=== PATIENT | female | born 1945 | race Caucasian/White ===

== ENCOUNTER 2022-10-06 12:20 | Inpatient (IN) | payer MEDICARE, OTHER ==
[2022-10-06] VITALS (33 sets, daily range): BP systolic 85–156; BP diastolic 33–81
[~2022-10-06] VITALS: Ht 165.1 cm; Wt 70.3 kg
[~2022-10-06 12:20] MED LIST: FURO-145 PO; LACT10SO3 PO; METF-441 PO; PANT40TA2 PO; POTA10CA43 PO; SPIR50TA PO
[2022-10-06] MEDS ORDERED: VANCOMYCIN 1 GM in IV D5W 250 ML IV ONE (13:00)
[2022-10-06] MEDS ORDERED: IV NS 0.9% 1,000 ML BAG IV ONE (13:00)
[2022-10-06] MEDS ORDERED: PIPERACILLIN /TAZOBACTAM 3.375 G in IV D5W 50 ML IV ONE (13:00)
[2022-10-06] MEDS ORDERED: IV NS 0.9% 1,000 ML IV ONE (13:00)
[2022-10-06] MEDS ORDERED: OMEP20TA20 PO (13:07)
[2022-10-06] MEDS ORDERED: FURO20TA4 PO (13:07)
[2022-10-06] MEDS ORDERED: OXYC1TAB8 PO (13:07)
[2022-10-06] MEDS ORDERED: CIPR500T5 PO (13:07)
[2022-10-06] MEDS ORDERED: ONDA4TAB11 PO (13:07)
[2022-10-06] MEDS ORDERED: SPIR50TA5 PO (13:07)
[2022-10-06 13:59] LABS: BASOPHILS % (AUTO) 0.1 % (0.0-2.0); EOSINOPHILS % (AUTO) 0.3 % (0.0-6.0); LYMPHOCYTES # (AUTO) 1.2 K/uL (0.8-4.8); LYMPHOCYTES % (AUTO) 6.8 % (20.0-44.0); MEAN CORPUSCULAR HGB CONC 30 g/dl (31.0-36.0); MEAN CORPUSCULAR VOLUME 80 fL (82-100); MONOCYTES # (AUTO) 1.7 K/uL (0.1-1.30); MONOCYTES % (AUTO) 9.8 % (2.0-12.0); NEUTROPHILS # (AUTO) 14.7 K/uL (1.8-8.9); PLATELET COUNT (AUTO) 160 K/uL (150-450); WHITE BLOOD COUNT (AUTO) 17.8 K/uL (4.3-11.0)
[2022-10-06 14:01] LABS: RED BLOOD CELL COUNT(AUTO) 1.23 MIL/uL (4.0-5.2)
[2022-10-06 14:02] LABS: HEMATOCRIT 10 % (33-45); HEMOGLOBIN 2.9 g/dL (11.5-14.8)
[2022-10-06 14:08] LABS: CHLORIDE 99 mmol/L (98-107); POTASSIUM 5.7 mmol/L (3.5-5.1); SODIUM SERUM 125 mmol/L (136-145)
[2022-10-06 14:09] LABS: CALCIUM, SERUM 6.8 mg/dL (8.5-10.1); CARBON DIOXIDE 21 mmol/L (21-32); CREATININE 0.7 mg/dL (0.6-1.3); GLUCOSE 196 mg/dL (74-106); UREA NITROGEN, BLOOD 25 mg/dL (7-18)
--- NOTE | 2022-10-06 14:15 | NUR ---
JOVANA ESTABLISHED. 20G R FA
--- NOTE | 2022-10-06 14:16 | NUR ---
ELIZABETH INSERTED. NO URINE
[2022-10-06 14:23] LABS: BILIRUBIN,TOTAL 0.7 mg/dL (0.2-1.0)
[2022-10-06 14:24] LABS: ALANINE AMINOTRANSFERASE 187 U/L (12-78); ALKALINE PHOSPHATASE 142 U/L (46-116); ASPARTATE AMINOTRANSFERASE 492 U/L (15-37); BILIRUBIN,DIRECT 0.3 mg/dL (0.0-0.2)
--- NOTE | 2022-10-06 14:30 | NUR ---
MOVE SHEET SUBMITTED.
[2022-10-06] MEDS ORDERED: IV NS 0.9% 250 ML IV ONE ×2 (14:38→14:54)
[2022-10-06] MEDS ORDERED: IOHEXOL-350 100 ML VIAL IV ONE ×3 (14:38→15:10)
--- NOTE | 2022-10-06 14:47 | NUR ---
CALLED SURGERY, DR. ROMEO SPEAKING WITH DR. PLUMMER.
[2022-10-06] MEDS: NOREPINEPHRINE 8 MG in IV NS 0.9% 242 ML IV PRN ×2 (15:00→19:09)
--- NOTE | 2022-10-06 15:00 | NUR ---
PATIENT TAKEN TO CT
[2022-10-06 15:15] LABS: BASOPHILS % (MANUAL) 2 % (0.0-2.0); LYMPHOCYTES % (MANUAL) 4 % (16-48); MONOCYTES % (MANUAL) 8 % (0-11.0); NEUTROPHILS % (MANUAL) 86 (42-76)
--- NOTE | 2022-10-06 15:15 | NUR ---
IV ESTABLISHED. L UA 20G
[2022-10-06] MEDS ORDERED: Calcium Gluconate 1GM/10ML 9.3 MEQ in IV NS 0.9% 100 ML IV ONE (15:30)
--- NOTE | 2022-10-06 15:52 | NUR ---
BED ASSIGNED- ICU 261
--- NOTE | 2022-10-06 16:18 | NUR ---
[facility] CALLED TREASURY DIRECTOR PAGED.
--- NOTE | 2022-10-06 16:37 | NUR ---
DR. BISHOP SPEAKING WITH HOSPITALIST.
--- NOTE | 2022-10-06 16:41 | NUR ---
REPORT GIVEN TO ANAYELI FOR CONTINUATION OF CARE
--- NOTE | 2022-10-06 16:53 | NUR ---
DR. BLEVINS AT BEDSIDE
[2022-10-06] MEDS ORDERED: NOREPINEPHRINE 32 MG in IV NS 0.9% 218 ML IV PRN (17:00)
[2022-10-06] MEDS ORDERED: PHYTONADIONE INJ 10 MG/1 ML AMPUL SQ SCH (17:00)
[2022-10-06] MEDS ORDERED: NOREPINEPHRINE 8 MG in IV NS 0.9% 250 ML IV PRN (17:00)
[2022-10-06] MEDS ORDERED: ONDANSETRON HCL/PF 4 MG/2 ML VIAL IVP PRN (17:00)
--- NOTE | 2022-10-06 17:25 | NUR ---
patient transferred to bed 262. handoff report given. patient was transferred before 1st unit of blood was complete
--- NOTE | 2022-10-06 17:30 | NUR ---
ICU/RN PT ADMITED FROM ER.DUE TO LOW H/H AND ALOC. PT IS AWAKE AND ALERT NOW ,BARBADIAN SPEAKING.FAMILY AT BED SIDE.ON LEVOPHED DRIP AT 1 MCG/KG /MIN. HAS LOW T-95.8. 2WARM BLANKET ON.F/C IN PLACE WITH MINIMAL AMOUNT OF JUSTIN URINE. SKIN INTACT.ABDOMEN DISTENDED.HAS ASCITES. LABS REVIEW. NOTIFIED.
[2022-10-06] MEDS ORDERED: PIPERACILLIN /TAZOBACTAM 3.375 G in IV D5W 50 ML IV SCH (18:00)
[2022-10-06] MEDS ORDERED: DEXTROSE 50%-WATER 50 ML DISP.SYRIN IV PRN (18:00)
[2022-10-06] MEDS: PANTOPRAZOLE 40 MG VIAL IV SCH (18:12)
[2022-10-06] MEDS: BLOOD SUGAR DIAGNOSTIC 1 EACH STRIP IN SCH (18:12)
--- NOTE | 2022-10-06 19:15 | NUR ---
CLAY CASTER NOTE RECEIVED PT FOR CONTINUITY OF CARE. PATIENT A/OX3-4; THAI SPEAKING; FEELING WEAK IN NO S/SX OF ACUTE DISTRESS AT THIS TIME; CURRENTLY ON ROOM AIR, WITH 02 SAT >95% AT THIS TIME. RECEIVED PT WITH ONGOING BLOOD TRANSFUSION (2ND BAG OF PRBC) RUNNING PER PROTOCOL. ALSO HAS LEVO RECEIVED AT 1MCG/KG/MIN MONITORED AND ADJUSTED PER PROTOCOL.PT ON NPO. WITH ELIZABETH CATH SECURED AND INTACT WITH SMALL URINE OUTPUT NOTED. WILL ENSURE SAFETY MEASURES WITHIN THE SHIFT. PATIENT BED ALARM IS ON. HEAD OF BED ELEVATED. BED IS LOCKED, IN LOWEST POSITION AND SIDE RAILS UP. CALL LIGHT WITHIN REACH OF THE PATIENT. APPLICABLE ISOLATION PRECAUTIONS IN PLACE. WILL CONTINUE TO MONITOR AND REASSESS FOR ANY CHANGES AND WILL CARRY OUT ANY ONGOING AND ACTIVE MD ORDER.
--- NOTE | 2022-10-06 19:45 | NUR ---
QUALITY REP NOTE ENDED BLOOD TRANSFUSION @194, VITAL SIGNS REMAINED WNL, NO BLOOD TRANSFUSION REACTION NOTED. WILL CONTINUE TO MONITOR AND ASSESS FOR ANY BLOOD TRANSFUSION REACTION POST PROCEDURE. H&H TO BE RECHECKED 1HR POST PROCEDURE WILL INFORM LAB. CLUTCH SPECIALIST MADE AWARE.
[2022-10-06] MEDS: ALBUMIN 25% 25 GM in PREMIX 1 EA IV SCH (19:46)
[2022-10-06] MEDS: IV D5/ 0.9% NACL 1,000 ML IV PRN (20:02)
--- NOTE | 2022-10-06 20:20 | NUR ---
PRODUCT SAFETY TECHNICIAN NOTE PICC LINE NURSE FACILITATED INSERTION OF PICC LINE @R UA TRIPLE LUMEN PICC; SECURED , INTACT AND FLUSHING WELL. NURSING INFORMATICS SPECIALIST WELL AWARE.
--- NOTE | 2022-10-06 21:00 | NUR ---
SEAM SEWER NOTE NOTIFIED JOHN COTTER (YENNI POWELL,ROSMERY) THAT PT'S SBP <80, SECURED ORDER FOR 2ND PRESSOR, MAY START CISCO AND MAINTAIN SBP >90. RN ACKNOWLEDGED AND WILL CARRY OUT ROLLING UP MACHINE OPERATOR MADE AWARE.
[2022-10-06] MEDS: PIPERACILLIN /TAZOBACTAM 3.375 G in IV D5W 100 ML IV SCH (21:23)
[2022-10-06] MEDS ORDERED: PHENYLEPHRINE 100 MG in IV NS 0.9% 240 ML IV PRN (21:30)
--- NOTE | 2022-10-06 21:35 | NUR ---
CLINICAL TRIAL ASSISTANT NOTE STARTED 1 BAG OF PLATELET ORDERED. VITAL SIGNS TAKEN AND NOTED TO BE WNL. INFUSED PER PROTOCOL. WILL CONTINUE TO MONITOR AND ASSESS FOR ANY RANSFUSION REACTION AND ADDRESS ACCORDINGLY. BIT AND SHANK DEPARTMENT SUPERVISOR WELL AWARE. Addendum: 10/06/22 at 2211 by HERRERA ORTIZ RN @2210 TRANSFUSION DONE; WILL CONTINUE TO MONITOR.
[2022-10-06 21:39] LABS: HEMOGLOBIN 6.6 g/dL (11.5-14.8)
--- NOTE | 2022-10-06 21:40 | NUR ---
PARLOR MAID NOTE CRITICAL LAB H&H 6.8 ? 22, NOTIFIED ONCALL (YENNI,BLENDING OPERATOR) PT IS S/P 2 PRBC, WITH ONGOING PLATELET TRANSFUSION AND 2 MORE FFP, 1 BAG OF PRBC TO GIVE. ACKNOWLEDGED. OFFICE SERVICES ASSOCIATE MADE AWARE.
--- NOTE | 2022-10-06 22:03 | NUR ---
PUBLICATIONS EDITOR NOTE CRITICAL LAB FIBRINOGEN @100, NOTIFIED ONCALL (ROSMERY HYMAN), WITH ORDER FOR CRYOPRECIPITATE TO BE GIVEN WITHIN THE SHIFT. MD ACKNOWLEDGED. BOAT HOIST OPERATOR WELL AWARE.
--- NOTE | 2022-10-06 22:15 | NUR ---
WARP COILER NOTE LACTIC ACID 16.5, NOTIFIED ONCALL (ROSMERY HYMAN). NO NEW ORDERS. WILL CONTINUE TO MONITOR. RESOURCE CONSERVATION SPECIALIST MADE AWARE.
--- NOTE | 2022-10-06 22:35 | NUR ---
LIEN SEARCHER NOTE STARTED 1ST BAG OF FFP ORDERED. VITAL SIGNS TAKEN AND NOTED TO BE WNL. INFUSED PER PROTOCOL. WILL CONTINUE TO MONITOR AND ASSESS FOR ANY TRANSFUSION REACTION. VETERINARY TECHNICIAN INSTRUCTOR WELL AWARE. Addendum: 10/06/22 at 2347 by HERRERA ORTIZ RN @2330 TRANSFUSION DONE; WILL CONTINUE TO MONITOR.
--- NOTE | 2022-10-06 23:45 | NUR ---
CHROME TANNER NOTE STARTED 2ND BAG OF FFP ORDERED. VITAL SIGNS TAKEN AND NOTED TO BE WNL. INFUSED PER PROTOCOL. WILL CONTINUE TO MONITOR AND ASSESS FOR ANY TRANSFUSION REACTION. PACKAGING LINE ATTENDANT WELL AWARE. Addendum: 10/07/22 at 0045 by HERRERA ORTIZ RN @0045 TRANSFUSION DONE; WILL CONTINUE TO MONITOR.
[2022-10-07] VITALS (103 sets, daily range): BP systolic 76–173; BP diastolic 42–86
[2022-10-07] MEDS: VANCOMYCIN HCL 0.75 GM in IV D5W 250 ML IV SCH ×2 (00:23→13:15)
[2022-10-07] MEDS: BLOOD SUGAR DIAGNOSTIC 1 EACH STRIP IN SCH ×4 (00:23→18:53)
[2022-10-07] MEDS: INSULIN REGULAR, HUMAN 100 UNIT/ML 3 ML VIAL SQ PRN ×5 (00:25→21:58)
--- NOTE | 2022-10-07 00:50 | NUR ---
DENTAL TECH NOTE STARTED 1BAG OF CRYO ORDERED. VITAL SIGNS TAKEN AND NOTED TO BE WNL. INFUSED PER PROTOCOL. WILL CONTINUE TO MONITOR AND ASSESS FOR ANY TRANSFUSION REACTION. SUBSTATION OPERATOR WELL AWARE. Addendum: 10/07/22 at 0138 by HERRERA ORTIZ RN @0130 TRANSFUSION DONE; WILL CONTINUE TO MONITOR.
--- NOTE | 2022-10-07 01:40 | NUR ---
MASKING MACHINE FEEDER NOTE STARTED 3RD BAG OF PRBC ORDERED. VITAL SIGNS TAKEN AND NOTED TO BE WNL. INFUSED PER PROTOCOL. WILL CONTINUE TO MONITOR AND ASSESS FOR ANY BLOOD TRANSFUSION REACTION. MUNICIPAL ENGINEER WELL AWARE. Addendum: 10/07/22 at 0500 by HERRERA ORTIZ RN @0500 TRANSFUSION DONE; WILL CONTINUE TO MONITOR.
[2022-10-07] MEDS: ALBUMIN 25% 25 GM in PREMIX 1 EA IV SCH ×2 (01:58→10:36)
[2022-10-07] MEDS: PIPERACILLIN /TAZOBACTAM 3.375 G in IV D5W 100 ML IV SCH ×3 (04:09→21:12)
[2022-10-07] MEDS: IV D5/ 0.9% NACL 1,000 ML IV PRN ×2 (06:27→18:54)
[2022-10-07 06:41] LABS: BILIRUBIN,URINE NEGATIVE (NEGATIVE); COLOR,URINE DARK YELLOW (YELLOW); LEUKOCYTE ESTERASE ,URINE NEGATIVE (NEGATIVE); NITRITE, URINE NEGATIVE (NEGATIVE); PH,URINE 5.5 (5.0-8.0); PROTEIN,URINE TRACE mg/dl (NEGATIVE); UGLUCOSE NEGATIVE (NEGATIVE); UROBILINOGEN,URINE 0.2 EU/dL (0.2)
[2022-10-07 06:51] LABS: WBC,URINE 0-2 /HPF (0-3)
[2022-10-07 06:52] LABS: BACTERIA,URINE Rare /HPF (None Seen); SQUAMOUS EPITHELIAL CELL,UR Moderate /HPF (None Seen); YEAST,URINE Many /HPF (None Seen)
--- NOTE | 2022-10-07 06:56 | NUR ---
RESIDENTIAL PROGRAM MANAGER CLOSING NOTE PATIENT REMAINS IN ROOM IN NO SIGNS OF RESPIRATORY DISTRESS, PATIENT STILL ON ROOM AIR; TOLERATING WELL SATURATING @ >93% SP02. S/P TRANSFUSION OF THE FOLLOWING DURING THE SHIFT: 2 FFP, 1 PLATELET, 1 CRYO AND 1 PRBC, NO TRANSFUSION REACTION NOTED. PT STILL ON NPO. SAFETY MEASURES IMPLEMENTED, BED IN LOWEST POSITION, LOCKED, SIDE RAILS UP, CALL LIGHT WITHIN REACH. ALL NEEDS AND ORDERS ADDRESSED DURING THE SHIFT. IV ACCESS MAINTAINED INTACT, SECURED AND FLUSHING WELL WITH IV FLUID RUNNING ORDERED. ALL DUE MEDS GIVEN ORDERED & SCHEDULED ; PATIENT TOLERATED WELL. STILL WITH ONGOING LEVO DRIP NOW AT 0.1MCG/KG/MIN RUNNING AND MONITORED PER PROTOCOL. PATIENT KEPT CLEAN AND COMFORTABLE WITHIN THE SHIFT. PATIENT ENDORSED TO INCOMING SHIFT RN WITH STABLE VITAL SIGN AND FOR CONTINUITY OF CARE.
[2022-10-07] MEDS ORDERED: PHENYLEPHRINE 100 MG in IV NS 0.9% 240 ML IV PRN (07:00)
--- NOTE | 2022-10-07 08:00 | NUR ---
RN NOTES RECEIVED PATIENT SPEAKS PORTUGUESE , AWAKE A/O X2/3, ROOM AIR, T-100F APPLIED COOLING MEASURE. ASSIST TURN and reposition q 2 hr. patient has redness sacral area applied Mepilex, also seen patient via wound nurse. patient on Levophed 0.1 mcg/kg/min, and D5ns@75 ml/hr on tomas picc line intact. patient has distended abdomen paracentesis was done on 10 days ago other hospital. assist turn and reposition with minimall assist. elevated lower extremities. call light within to reach. will follow up.
[2022-10-07 08:13] LABS: LYMPHOCYTES # (AUTO) 0.7 K/uL (0.8-4.8); LYMPHOCYTES % (AUTO) 4.8 % (20.0-44.0); MEAN CORPUSCULAR HGB CONC 33 g/dl (31.0-36.0); MEAN CORPUSCULAR VOLUME 85 fL (82-100); MONOCYTES # (AUTO) 1.1 K/uL (0.1-1.30); MONOCYTES % (AUTO) 7.2 % (2.0-12.0); NEUTROPHILS # (AUTO) 13.7 K/uL (1.8-8.9); PLATELET COUNT (AUTO) 78 K/uL (150-450); WHITE BLOOD COUNT (AUTO) 15.6 K/uL (4.3-11.0)
[2022-10-07 08:15] LABS: RED BLOOD CELL COUNT(AUTO) 1.95 MIL/uL (4.0-5.2)
[2022-10-07 08:17] LABS: HEMOGLOBIN 5.4 g/dL (11.5-14.8)
[2022-10-07 08:18] LABS: HEMATOCRIT 17 % (33-45)
[2022-10-07 08:43] LABS: ALBUMIN 2.3 g/dL (3.4-5.0); BILIRUBIN,DIRECT 1.1 mg/dL (0.0-0.2); BILIRUBIN,TOTAL 1.9 mg/dL (0.2-1.0); CALCIUM, SERUM 7.3 mg/dL (8.5-10.1); CREATININE 1.1 mg/dL (0.6-1.3); MAGNESIUM 1.6 mg/dL (1.8-2.4); PHOSPHORUS 3.3 mg/dL (2.5-4.9); POTASSIUM 4.9 mmol/L (3.5-5.1); TOTAL PROTEIN, SERUM 4.1 g/dL (6.4-8.2)
--- NOTE | 2022-10-07 08:45 | NUR ---
RN NOTES GET CALL FROM LAB FOR CRITICAL HEMOGLOBIN 5.4 AT THIS TIME. NOTIFIED HOSPITALIST Dr OMALLEY AND GET TO NEW ORDER ADMINISTER 2 MORE UNITS. ORDER TAKEN AND CARRIED OUT.
[2022-10-07 08:49] LABS: THYROID STIMULATING HORMONE 2.174 uIU/mL (0.358-3.74)
--- NOTE | 2022-10-07 09:20 | NUR ---
LETTER: EDWARD RECEIVED A CALL FROM FAMILY PAN ([phone]) REQUESTING A LETTER THAT PT IS IN THE HOSPITAL. EDWARD GAVE FAMILY LETTER OF PT BEING AT THE HOSPITAL AND PLACED A COPY IN THE CHART.
[2022-10-07] MEDS: PANTOPRAZOLE 40 MG VIAL IV SCH ×2 (09:29→19:10)
--- NOTE | 2022-10-07 10:18 | NUR ---
WOUND CARE CONSULT: PT PRESENTS WITH VERY LARGE ABDOMEN AND BONY SACRAL AREA WITH SOME SCARRING, PRESENT ON ADMISSION. DISCUSSED SKIN PROTECTION WITH NURSING STAFF. ELIZABETH CATH NOTED. IN AGREEMENT WITH PLAN OF CARE.
[2022-10-07] MEDS ORDERED: ACETAMINOPHEN 325 MG TABLET PO PRN (10:30)
[2022-10-07] MEDS ORDERED: LACTULOSE 10 G/15 ML UDC (PYXIS) PO ONE (11:30)
--- NOTE | 2022-10-07 11:30 | NUR ---
RN NOTES STARTED ONE UNIT OF BLOOD TRANSFUSION AT THIS TIME ON JIMMIE PICC LINE. PATIENT A/O X3, REFUSED PAIN, NO ACUTE RESPIRATORY DISTRESS, VS TAKEN T-99.2F, P-96, R-18, BP 111/55, O2_94 RA. DAUGHTER NEXT TO THE BED. CALL LIGHT WITHIN TO REACH. WILL FOLLOW UP.
--- NOTE | 2022-10-07 11:50 | NUR ---
rn notes Increase blood infusion to the 120 ml/hr on JIMMIE PICC LINE intact. patient stable refused pain bp 109/55, p-96, r-18, t-99.2F, o2-93% RA, patient refused pain, no acute respiratory distress. family next to the bed. seen patient via hospitalist Dr Randall, no new orders at this time. MD spoke family about patient condition. will follow up.
[2022-10-07] MEDS: Magnesium 1GM/D5W 100ML PREMIX 100 ML IV SCH ×2 (13:12→14:53)
--- NOTE | 2022-10-07 13:30 | NUR ---
RN NOTES PATIENT STABLE EATING, BS-175 MG/DL COVERAGE GIVEN, T_98.2F, P-96, R-18, BP- 124/ 65, O2-95% RA. PATIENT REFUSED PAIN, NO ACUTE RESPIRATORY DISTRESS, CONTINUING BLOOD TRANSFUSION OF 120 ML/HR INTACT ON JIMMIE PICC LINE.
--- NOTE | 2022-10-07 14:26 | NUR ---
RN NOTES STARTED SECOND UNITS OF BLOOD TRANSFUSION AT THIS TIME 120 ML/HR ON JIMMIE PICC LINE , PATIENT AWAKE, REFUSED PAIN T-98.6F, P-97, BP 117/66, R-18, O2-92 RA. NO ACUTE RESPIRATORY DISTRESS. REFUSED PAIN . WILL FOLLOW UP.
--- NOTE | 2022-10-07 16:00 | NUR ---
RN NOTES GET CALL FROM [facility] [address] KENDALL WANTED TO SPEAK HOSPITALIST, DR CASTELLANOS PHONE # [phone] . ALSO FAXED AGREEMENT FOR MEDICAL RECORD INFORMATION FROM [facility]. SPOKE MR PERSONNEL NAME LUIS A .
--- NOTE | 2022-10-07 17:22 | NUR ---
rn notes finished blood transfusion at this time bp-119/78, p-r-20, hr-97, o2-96% , T-98.8F. patient has x3 bloody stool, distended abdomen.
[2022-10-07 17:36] LABS: OCCULT BLOOD STOOL POSITIVE (NEGATIVE)
--- NOTE | 2022-10-07 18:03 | NUR ---
rn notes patient going to transfer to the [facility], family aware of.
--- NOTE | 2022-10-07 18:41 | NUR ---
ICU/RN PT NEED HIGH LEVEL OF CARE TO DO IR .[facility] IN [place] ACCEPTED THE PATIENT IN ICU. NO SPECIAL WEAPONS AND TACTICS OFFICER AVAILABLE AT THIS TIME. SURVEYING TEACHER ALEXI NOTIFIED.UNABLE TO ARRANGE TRANSPORTATION.PT IS ON LEVOPHED DRIP.NEED ACLS NURSE .MORE THEN 10 AMBULANCE CALLED MOST OF THEM DO NOT HAVE ACLS NURSES. OR THEY DO NOT HAVE CONTRACT WITH [facility]. ([facility] [phone].[facility] [phone] [id number] [phone].[facility] [phone] .[facility] [phone].[facility] [phone] .PRN [phone]) . MAG COORDINATOR NOTIFIED. SURVEYING TEACHER NOTIFIED ALEXI NOTIFIED.WILL HOLD TRANSFER.
--- NOTE | 2022-10-07 18:45 | NUR ---
RN NOTES PATIENT STABLE AFTER BLOOD TRANSFUSION, HELD LEVOPHED AT THIS TIME.BS-262MG/DL COVERAGE GIVEN, PATIENT TOLERATED DINNER 25%. PATIENT HAS BLOODY STOOL X4, URINE OUTPUT WAS 700ML, DISTENDED ABDOMEN, APPLIED O2 2LNC. FAMILY NEXT TO THE BED. INFUSING D5NS@75ML.HR ON JIMMIE PICC LINE INTACT. ASSIST TURN AND REPOSITION 2 HR.ENDORSED ONCOMING NURSE BETO.
[2022-10-07] MEDS ORDERED: DEXTROSE 50%-WATER 50 ML DISP.SYRIN IV PRN (19:30)
--- NOTE | 2022-10-07 19:46 | NUR ---
icu registered nurse. initial assessment. received the pt rest in bed, awake, alert follow commands. grouter helper showing sinus rhythm .oxygen 2L nasal cannula. sat 98%. no acute distress noted. hob elevated. iv rt upper arm picc line. ivf d5ns 75 ml/h. will continue to monitor vitals..
[2022-10-07 21:39] LABS: HEMOGLOBIN 8.5 g/dL (11.5-14.8)
[2022-10-07 23:27] LABS: BAND % (MANUAL) 2 % (0.0-5.0); BASOPHILS % (MANUAL) 0 % (0.0-2.0); EOSINOPHILS % (MANUAL) 0 % (0-4); LYMPHOCYTES % (MANUAL) 5 % (16-48); MONOCYTES % (MANUAL) 8 % (0-11.0); NEUTROPHILS % (MANUAL) 85 (42-76)
[2022-10-08] VITALS (26 sets, daily range): BP systolic 99–132; BP diastolic 54–73
[2022-10-08] MEDS: VANCOMYCIN HCL 0.75 GM in IV D5W 250 ML IV SCH (00:50)
[2022-10-08] MEDS: BLOOD SUGAR DIAGNOSTIC 1 EACH STRIP IN SCH ×3 (00:50→11:39)
--- NOTE | 2022-10-08 03:34 | NUR ---
PROTECTION CHIEF INDUSTRIAL PLANT. AM CARE GIVEN. REMAINING SAME OXYGEN TOLERATED WELL. SAT 97%. GEOGRAPHIC INFORMATION SYSTEM ANALYST SHOWING NSR. IV RT UPPER ARM PICC LINE . IVF D5NS 75 ML/H. FC PATENT. RECTAL BLEEDING NOTED. MD SMITH AWARE, SINCE YESTERDAY MORNING, TURN AND REPOSITION Q2H. WILL CONTINUE TO MONITOR VITALS.
[2022-10-08] MEDS: PIPERACILLIN /TAZOBACTAM 3.375 G in IV D5W 100 ML IV SCH (04:09)
[2022-10-08 05:23] LABS: BASOPHILS # (AUTO) 0.1 K/uL (0.0-0.2); BASOPHILS % (AUTO) 0.4 % (0.0-2.0); EOSINOPHILS % (AUTO) 0.1 % (0.0-6.0); HEMATOCRIT 24 % (33-45); HEMOGLOBIN 7.9 g/dL (11.5-14.8); LYMPHOCYTES # (AUTO) 0.5 K/uL (0.8-4.8); LYMPHOCYTES % (AUTO) 3.6 % (20.0-44.0); MEAN CORPUSCULAR HGB CONC 33 g/dl (31.0-36.0); MEAN CORPUSCULAR VOLUME 85 fL (82-100); MONOCYTES # (AUTO) 0.8 K/uL (0.1-1.30); MONOCYTES % (AUTO) 5.2 % (2.0-12.0); NEUTROPHILS # (AUTO) 13.7 K/uL (1.8-8.9); NEUTROPHILS % (AUTO) 90.7 % (43.0-81.0); PLATELET COUNT (AUTO) 52 K/uL (150-450); RED BLOOD CELL COUNT(AUTO) 2.79 MIL/uL (4.0-5.2); WHITE BLOOD COUNT (AUTO) 15.1 K/uL (4.3-11.0)
[2022-10-08 05:49] LABS: D-DIMER 11.54 mg/L(FEU (0.17-0.50)
[2022-10-08 05:52] LABS: CALCIUM, SERUM 7.4 mg/dL (8.5-10.1); CREATININE 0.7 mg/dL (0.6-1.3); MAGNESIUM 2.2 mg/dL (1.8-2.4); PHOSPHORUS 2.3 mg/dL (2.5-4.9); POTASSIUM 4.7 mmol/L (3.5-5.1)
[2022-10-08 06:01] LABS: C-REACTIVE PROTEIN 6.3 mg/dL (0.0-0.9)
[2022-10-08 06:58] LABS: ALANINE AMINOTRANSFERASE 526 U/L (12-78); ALBUMIN 2.4 g/dL (3.4-5.0); ALKALINE PHOSPHATASE 185 U/L (46-116); ASPARTATE AMINOTRANSFERASE 1122 U/L (15-37); BILIRUBIN,DIRECT 1.7 mg/dL (0.0-0.2); BILIRUBIN,TOTAL 3.2 mg/dL (0.2-1.0); TOTAL PROTEIN, SERUM 4.5 g/dL (6.4-8.2)
--- NOTE | 2022-10-08 07:15 | NUR ---
COMPUTER AIDED DESIGN TECHNICIAN Note Patient is resting in bed. Cardiac montior showed SR HR 78/min. SpO2 98% with 2L oxygen via NC. BP 108/56mmhg without vasopressor use. D5NS running through right UA PICC at 100mL/hr. Site is dry and patent.Capps is collecting carly and clear urine. Talked to patient's daughter Kanika, who speent the night with her, reporting that patient's sleep was inadequate because of her ND bleeding. As patient is resting and asleep now, will do a thorough assessment later.
[2022-10-08] MEDS ORDERED: LACTULOSE 10 G/15 ML UDC (PYXIS) PO PRN (08:00)
--- NOTE | 2022-10-08 08:30 | NUR ---
SPOOL WINDER Note Just had a thorough physical assessment with patient. Patient's GCS [id number], bilateral pupils 3mm PEARLLA. Noted abdominal distention, no pain upon touch or light palpation. No LL edema. Patient has an episode of IN bleed, bed shower was done. As patient's hemoglobin is 7.9 with IN bleeding, placed an order for 1 unit of PRBC.
[2022-10-08] MEDS: PANTOPRAZOLE 40 MG VIAL IV SCH (08:50)
[2022-10-08] MEDS: INSULIN REGULAR, HUMAN 100 UNIT/ML 3 ML VIAL SQ PRN ×2 (08:51→11:41)
[2022-10-08] MEDS: IV D5/ 0.9% NACL 1,000 ML IV PRN (09:05)
--- NOTE | 2022-10-08 09:08 | NUR ---
SPA EXPERIENCE COORDINATOR Note Just got a phone call from case loader operator regarding patient's placement. We are going to transfer patient to [facility] at around noon via ALS nurse escort. As it is very time sensitive with the blood transfusion, it is cancelled and to be further managed by the healthcare team at the recipient hospital. Patient's daughter Kanika is notified about the plan.
--- NOTE | 2022-10-08 10:10 | NUR ---
ELECTRIC LOCOMOTIVE FIRER/FIREMAN Note Received a call from housing case manager Lacey about the room number and contact details for patient's transfer. Would give handover at 11:00.
[2022-10-08] MEDS ORDERED: K PHOS NEUTRAL 250 MG TABLET PO ONE (11:00)
--- NOTE | 2022-10-08 11:10 | NUR ---
TESTER OPERATOR HELPER NOte Handover just given to recipient hospital Graham TESTER OPERATOR HELPER Bharat. Patient's latest condition and treatment plan are provided. For transfer at 12:00.
--- NOTE | 2022-10-08 12:35 | NUR ---
HISTOTECHNICIAN Note Ambulance arrived and handover was given to asphalt mixing machine operator team. Patient remains in SR with HR 80/ min. MAP>65mmHg upon transfer. SpO2 98% with 2L oxygen via NC. [facility] HISTOTECHNICIAN Bharat was notified of the departure of patient.
[2022-10-08 20:41] LABS: BAND % (MANUAL) 3 % (0.0-5.0); LYMPHOCYTES % (MANUAL) 4 % (16-48); MONOCYTES % (MANUAL) 2 % (0-11.0); NEUTROPHILS % (MANUAL) 91 (42-76)
[2022-10-09 08:06] LABS: IMMUNOGLOBULIN A, SERUM 235 mg/dL (64-422); IMMUNOGLOBULIN G, SERUM 867 mg/dL (586-1602); IMMUNOGLOBULIN M, SERUM 34 mg/dL (26-217)
[2022-10-10 14:07] LABS: *SPE A/G RATIO 1.3 (0.7-1.7); *SPE ALPHA-1-GLOBULIN 0.2 g/dL (0.0-0.4); *SPE ALPHA-2-GLOBULIN 0.3 g/dL (0.4-1.0); *SPE BETA GLOBULIN 0.5 g/dL (0.7-1.3); *SPE M-SPIKE Not Observed g/dL (Not Observed)
[2022-10-12 13:08] LABS: *ANA ANTI-CENTROMERE B AB 0.2 AI (0.0-0.9); *ANA ANTI-DNA(DS) AB, QN <1 IU/mL (0-9); *ANA ANTI-JO-1 <0.2 AI (0.0-0.9); *ANA ANTICHROMATIN ANTIBODY <0.2 AI (0.0-0.9); *ANA RNP ANTIBODIES 0.2 AI (0.0-0.9); *ANA SJOGREN'S ANTI-SS-A <0.2 AI (0.0-0.9); *ANA SJOGREN'S ANTI-SS-B <0.2 AI (0.0-0.9); *ANASMITH AB <0.2 AI (0.0-0.9)
== END 2022-10-08 13:52 | disposition short-term general hospital (02) | DRG 811 ==
LOC: ER 13:01 → ICU 16:01
PROVIDERS: ADMIT Registered Nurse; ATTEND Student in an Organized Health Care Education/Training Program
PROC: 30233R0 Transfusion of Autologous Platelets into Peripheral Vein, Percutaneous Approach (ICD-10-PCS; principal; 2022-10-06)
PROC: 30233N1 Transfusion of Nonautologous Red Blood Cells into Peripheral Vein, Percutaneous Approach (ICD-10-PCS; 2022-10-06)
PROC: 30233M1 Transfusion of Nonautologous Plasma Cryoprecipitate into Peripheral Vein, Percutaneous Approach (ICD-10-PCS; 2022-10-06)
PROC: 30233K1 Transfusion of Nonautologous Frozen Plasma into Peripheral Vein, Percutaneous Approach (ICD-10-PCS; 2022-10-06)
PROC: 02HV33Z Insertion of Infusion Device into Superior Vena Cava, Percutaneous Approach (ICD-10-PCS; 2022-10-06)
PROC: B548ZZA Ultrasonography of Superior Vena Cava, Guidance (ICD-10-PCS; 2022-10-06)
DX: D62 Acute posthemorrhagic anemia (principal); R57.1 Hypovolemic shock; C22.0 Liver cell carcinoma; I85.10 Secondary esophageal varices without bleeding; K76.6 Portal hypertension; D68.59 Other primary thrombophilia; E87.20 Acidosis, unspecified; E72.20 Disorder of urea cycle metabolism, unspecified; J90 Pleural effusion, not elsewhere classified; E87.1 Hypo-osmolality and hyponatremia; R18.8 Other ascites; D68.9 Coagulation defect, unspecified; G93.40 Encephalopathy, unspecified; K62.5 Hemorrhage of anus and rectum; K74.60 Unspecified cirrhosis of liver; Z20.822 Contact with and (suspected) exposure to COVID-19; E11.9 Type 2 diabetes mellitus without complications; Z79.84 Long term (current) use of oral hypoglycemic drugs; Z98.890 Other specified postprocedural states; Z79.899 Other long term (current) drug therapy; N20.0 Calculus of kidney; I86.4 Gastric varices; D63.8 Anemia in other chronic diseases classified elsewhere; D69.6 Thrombocytopenia, unspecified; E83.42 Hypomagnesemia; E87.5 Hyperkalemia; K80.20 Calculus of gallbladder without cholecystitis without obstruction; N28.89 Other specified disorders of kidney and ureter; Z92.21 Personal history of antineoplastic chemotherapy
CPT/HCPCS: 36415; 70450-TC; 71045-TC; 80048-TC; 80053-TC; 80061-TC; 80076-TC; 80202-TC; 81001; 82105; 82140-TC; 82247-TC; 82248-TC; 82272-TC; 82607-TC; 82728-TC; 82784; 82962-TC; 83010; 83540-TC; 83605-TC; 83615-TC; 83735-TC; 84100-TC; 84155; 84165; 84443-TC; 84484-TC; 85025-TC; 85027-TC; 85385-TC; 85396; 85610-TC; 85730-TC; 86140-TC; 86225; 86235; 86334; 86431-TC; 86706; 86803; 86850-TC; 87040-TC; 87081-TC; 87086-TC; 87340; A4216; A4223; C9113; C9803; G0378; J0610; J1815; J2543; J3370; J3430; J3475; J7030; J7040; J7042; J7050; J7060; P9012; P9016; P9017; P9035; P9047; Q9967

== ENCOUNTER 2022-10-24 15:58 | Inpatient (IN) | payer MEDICARE, OTHER ==
[~2022-10-24] VITALS: Ht 167.6 cm; Wt 81.6 kg
[~2022-10-24 15:58] MED LIST changes: -FURO-145 PO; +FURO20TA4 PO; -LACT10SO3 PO; +OMEP20TA20 PO; +ONDA4TAB11 PO; +OXYC1TAB8 PO; -PANT40TA2 PO; -POTA10CA43 PO; -SPIR50TA PO; +SPIR50TA5 PO
--- NOTE | 2022-10-24 16:20 | NUR ---
[id number] FOR ABDOMINAL DISTENTION, PAIN AND VOMITING FROM LIVER CHIRROSIS STARTED YESTERDAY.
--- NOTE | 2022-10-24 16:54 | NUR ---
COVID SWAB TAKEN
[2022-10-24 17:07] LABS: BASOPHILS # (AUTO) 0.1 K/uL (0.0-0.2); BASOPHILS % (AUTO) 0.5 % (0.0-2.0); EOSINOPHILS % (AUTO) 0.2 % (0.0-6.0); HEMATOCRIT 35 % (33-45); HEMOGLOBIN 10.5 g/dL (11.5-14.8); LYMPHOCYTES # (AUTO) 0.4 K/uL (0.8-4.8); LYMPHOCYTES % (AUTO) 2.1 % (20.0-44.0); MEAN CORPUSCULAR HGB CONC 30 g/dl (31.0-36.0); MEAN CORPUSCULAR VOLUME 95 fL (82-100); MONOCYTES # (AUTO) 0.8 K/uL (0.1-1.30); NEUTROPHILS # (AUTO) 18.6 K/uL (1.8-8.9); NEUTROPHILS % (AUTO) 93.2 % (43.0-81.0); PLATELET COUNT (AUTO) 155 K/uL (150-450); RED BLOOD CELL COUNT(AUTO) 3.67 MIL/uL (4.0-5.2)
[2022-10-24 17:29] LABS: SERUM AMMONIA 19 umol/L (11-32)
[2022-10-24] MEDS ORDERED: PIPERACILLIN /TAZOBACTAM 2.25 G in IV D5W 50 ML IV ONE (17:30)
[2022-10-24] MEDS ORDERED: VANCOMYCIN 1 GM in IV D5W 250 ML IV ONE (17:30)
--- NOTE | 2022-10-24 17:48 | NUR ---
URINE SAMPLE OBTAINED SENT TO LAB
[2022-10-24 18:23] LABS: BAND % (MANUAL) 3 % (0.0-5.0); CARBON DIOXIDE 17 mmol/L (21-32); CHLORIDE 99 mmol/L (98-107); CREATININE 3.4 mg/dL (0.6-1.3); GLUCOSE 128 mg/dL (74-106); MONOCYTES % (MANUAL) 1 % (0-11.0); NEUTROPHILS % (MANUAL) 96 (42-76); SODIUM SERUM 125 mmol/L (136-145); UREA NITROGEN, BLOOD 59 mg/dL (7-18)
[2022-10-24 18:26] LABS: ALANINE AMINOTRANSFERASE 72 U/L (12-78); ALBUMIN 1.9 g/dL (3.4-5.0); ALKALINE PHOSPHATASE 504 U/L (46-116); ASPARTATE AMINOTRANSFERASE 120 U/L (15-37); BILIRUBIN,TOTAL 6.3 mg/dL (0.2-1.0); LIPASE 49 U/L (73-393); TOTAL PROTEIN, SERUM 5.3 g/dL (6.4-8.2)
[2022-10-24 18:30] LABS: BILIRUBIN,URINE 2+ (NEGATIVE); COLOR,URINE YELLOW (YELLOW); LEUKOCYTE ESTERASE ,URINE TRACE (NEGATIVE); NITRITE, URINE POSITIVE (NEGATIVE); PROTEIN,URINE TRACE mg/dl (NEGATIVE); UGLUCOSE NEGATIVE (NEGATIVE); UROBILINOGEN,URINE 0.2 EU/dL (0.2)
[2022-10-24 18:35] LABS: BILIRUBIN,DIRECT 4.8 mg/dL (0.0-0.2)
[2022-10-24 18:39] LABS: BACTERIA,URINE 2+ /HPF (None Seen)
[2022-10-24 18:40] LABS: SQUAMOUS EPITHELIAL CELL,UR 21-50 /HPF (None Seen)
[2022-10-24] MEDS ORDERED: DEXTROSE 50%-WATER 50 ML DISP.SYRIN IVP ONE (19:00)
[2022-10-24] MEDS ORDERED: INSULIN REGULAR, HUMAN 100 UNIT/ML 10 ML VIAL IV ONE (19:00)
[2022-10-24] MEDS ORDERED: Calcium Gluconate 1GM/10ML 4.65 MEQ in IV NS 0.9% 100 ML IV ONE (19:00)
[2022-10-24] MEDS ORDERED: ALBUTEROL FS 2.5 MG/0.5 ML VIAL.NEB NEB ONE (19:00)
[2022-10-24] MEDS ORDERED: LIDOCAINE 1% INJ 50 ML MDV IJ ONE (19:10)
[2022-10-24] MEDS ORDERED: MAGNESIUM HYDROXIDE 30 ML UDC PO PRN (19:30)
[2022-10-24] MEDS ORDERED: MAG HYDROX/AL HYDROX/SIMETH 30 ML UDC PO PRN (19:30)
[2022-10-24] MEDS ORDERED: Z GUARD REMEDY 4 OZ OINT TP PRN (19:30)
[2022-10-24] MEDS ORDERED: INSULIN REGULAR, HUMAN 100 UNIT/ML 10 ML VIAL ONE (19:36)
[2022-10-24] MEDS ORDERED: DEXTROSE 50%-WATER 50 ML DISP.SYRIN ONE (19:37)
[2022-10-24] MEDS ORDERED: DEXTROSE 50%-WATER 50 ML DISP.SYRIN IV PRN (20:00)
[2022-10-24] MEDS ORDERED: SODIUM POLYSTYRENE SULFONATE 15 G/60 ML BOTTLE PO ONE (20:00)
[2022-10-24] MEDS ORDERED: ALBUTEROL FS 2.5 MG/3 ML VIAL.NEB ONE (20:24)
--- NOTE | 2022-10-24 20:48 | NUR ---
XR AT BEDSIDE
--- NOTE | 2022-10-24 20:56 | NUR ---
REPORT GIVEN TO ADDISON GREEN
[2022-10-24] MEDS ORDERED: PIPERACILLIN /TAZOBACTAM 3.375 G in IV D5W 50 ML IV SCH (21:00)
--- NOTE | 2022-10-24 21:39 | NUR ---
PT TAKEN TO CT VIA JOHN
--- NOTE | 2022-10-24 21:45 | NUR ---
PT TRANSPORTED TO ROOM [address], ACCOMPANIED BY MENDOZA AND RN
--- NOTE | 2022-10-24 21:56 | NUR ---
ADMISSION NOTES ADMITTED AT 77-YEAR-OLD FEMALE WITH DX OF RECURRENT ASCITES, TRANSPORTED VIA GURNEY BY 2 ED PERSONNEL. PATIENT IS ALERT ORIENTED X3-4, INDONESIAN SPEAKING, ACCOMPANIED BY DAUGHTER. O2 VIA NC AT 4L, NO SOB OR DISTRESS NOTED AND DENIES PAIN AT THIS TIME. ON TELE MONITOR SHOWING SINUS RHYTHM. IV ACCESS ON LAC #20G, INTACT AND PATENT. BODY ASSESSMENT DONE, SKIN IS INTACT, BLE PITTING +3 EDEMA NOTED. VITAL SIGNS FOLLOWS: TEMP 97.2, HR 68, BP 98/80. SAFETY MEASURES IN PLACE: BED LOCKED AND IN LOWEST POSITION, SIDE RAILS UP X3, BED ALARM ON, CALL LIGHT WITHIN REACH.
--- NOTE | 2022-10-24 22:18 | NUR ---
RN NOTE PER PATIENT FAMILY, OK TO DO CPR BUT DO NOT INTUBATE THE PATIENT.
--- NOTE | 2022-10-24 22:35 | NUR ---
RN NOTE RECEIVED CRITICAL LAB VALUE OF LACTIC ACID TRENDING UP FROM 6.6 TO 8.7. NOTIFIED MARICHUY MANAGER SPA, NNO AT THIS TIME.
[2022-10-24] MEDS: INSULIN REGULAR, HUMAN 100 UNIT/ML 3 ML VIAL SQ PRN (22:46)
[2022-10-24] MEDS: BLOOD SUGAR DIAGNOSTIC 1 EACH STRIP IN SCH (22:46)
[2022-10-24] MEDS ORDERED: SODIUM POLYSTYRENE SULFONATE 15 G/60 ML BOTTLE ONE (22:55)
[2022-10-24] MEDS: ZOSYN IVPB 2.25 G in IV D5W 50ml IV SCH (22:55)
[2022-10-25] VITALS: BP 81/37
--- NOTE | 2022-10-25 00:32 | NUR ---
RN NOTE PT BP IS 81/37, CHECKED BP MULTIPLE TIMES AND NOTIFIED MARICHUY LINK WIRE FABRIC MACHINE TENDER, NNO AT THIS TIME
[2022-10-25 04:00] VITALS: BP 136/108
[2022-10-25] MEDS: ZOSYN IVPB 2.25 G in IV D5W 50ml IV SCH ×3 (04:14→20:57)
[2022-10-25 07:00] LABS: BASOPHILS % (AUTO) 0.1 % (0.0-2.0); EOSINOPHILS % (AUTO) 0.1 % (0.0-6.0); HEMATOCRIT 31 % (33-45); HEMOGLOBIN 9.6 g/dL (11.5-14.8); LYMPHOCYTES # (AUTO) 0.5 K/uL (0.8-4.8); LYMPHOCYTES % (AUTO) 2.2 % (20.0-44.0); MEAN CORPUSCULAR HGB CONC 31 g/dl (31.0-36.0); MEAN CORPUSCULAR VOLUME 94 fL (82-100); MONOCYTES # (AUTO) 1.2 K/uL (0.1-1.30); MONOCYTES % (AUTO) 5.7 % (2.0-12.0); NEUTROPHILS # (AUTO) 19.6 K/uL (1.8-8.9); NEUTROPHILS % (AUTO) 91.9 % (43.0-81.0); PLATELET COUNT (AUTO) 120 K/uL (150-450); RED BLOOD CELL COUNT(AUTO) 3.34 MIL/uL (4.0-5.2); WHITE BLOOD COUNT (AUTO) 21.3 K/uL (4.3-11.0)
[2022-10-25 07:09] LABS: SERUM AMMONIA 7 umol/L (11-32)
[2022-10-25 07:19] LABS: CALCIUM, SERUM 7.8 mg/dL (8.5-10.1); CARBON DIOXIDE 14 mmol/L (21-32); CHLORIDE 99 mmol/L (98-107); CREATININE 3.4 mg/dL (0.6-1.3); GLUCOSE 110 mg/dL (74-106); MAGNESIUM 2.7 mg/dL (1.8-2.4); PHOSPHORUS 6.2 mg/dL (2.5-4.9); POTASSIUM 5.6 mmol/L (3.5-5.1); SODIUM SERUM 131 mmol/L (136-145); UREA NITROGEN, BLOOD 63 mg/dL (7-18)
--- NOTE | 2022-10-25 07:20 | NUR ---
RN CLOSING NOTES PATIENT IN BED, IS ALERT ORIENTED X3-4, URDU SPEAKING, DAUGHTER STILL AT BEDSIDE. O2 VIA NC AT 4L, NO SOB OR DISTRESS NOTED AND DENIES PAIN AT THIS TIME. ON TELE MONITOR SHOWING SINUS RHYTHM. IV ACCESS ON LAC #20G, INTACT AND PATENT, S/L. SAFETY MEASURES IN PLACE: BED LOCKED AND IN LOWEST POSITION, SIDE RAILS UP X3, BED ALARM ON, CALL LIGHT WITHIN REACH. ALL DUE MEDS WERE GIVEN AND NEEDS ATTENDED. WILL ENDORSE TO ONCOMING NURSE FOR BETO.
--- NOTE | 2022-10-25 07:35 | NUR ---
RN OPENING NOTES PATIENT IN BED, IS ALERT ORIENTED X3-4, NEPALI SPEAKING, DAUGHTER STILL AT BEDSIDE. O2 VIA NC AT 4L, NO SOB OR DISTRESS NOTED AND DENIES PAIN AT THIS TIME. ON TELE MONITOR SHOWING SINUS RHYTHM. IV ACCESS ON LAC #20G, INTACT AND PATENT, S/L. SAFETY MEASURES IN PLACE: BED LOCKED AND IN LOWEST POSITION, SIDE RAILS UP X3, BED ALARM ON, CALL LIGHT WITHIN REACH AND NEEDS ATTENDED. WILL MONITOR FOR ANY CHANGES
[2022-10-25 08:00] VITALS: BP 84/36
[2022-10-25] MEDS: BLOOD SUGAR DIAGNOSTIC 1 EACH STRIP IN SCH ×4 (08:05→22:04)
[2022-10-25] MEDS: PANTOPRAZOLE 40 MG TABLET.DR PO SCH (08:41)
[2022-10-25] MEDS: PROSOURCE / PROSTAT (PYXIS) 30 ML UDC GT SCH ×3 (09:22→16:00)
[2022-10-25] MEDS: SPIRONOLACTONE 25 MG TABLET PO SCH (09:34)
[2022-10-25] MEDS: RIFAXIMIN 200 MG TABLET PO SCH ×2 (09:34→16:02)
[2022-10-25] MEDS: FUROSEMIDE 40 MG/4 ML VIAL IV SCH (09:34)
[2022-10-25] MEDS: MIDODRINE HCL (5MG) 5 MG TABLET PO SCH ×3 (10:19→16:17)
[2022-10-25 11:05] LABS: ABG BASE EXCESS -12.2 mmol/L; ABG OXYGEN SATURATION 92.7 % (92.0-98.5); ABG PCO2 27.9 mmHg (35.0-45.0); ABG PH 7.288 (7.350-7.450); ABG PO2 71.4 mmHg (75.0-100.0); AaDO2 152.9 mmHg; COHb 0.8 % (0.5-1.5); MetHb 0.4 % (0.0-1.5); O2Hb 91.6 % (94.0-97.0); SITE, ABG Right Radial; VENT MODE, BG 4L NC
[2022-10-25 12:00] VITALS: BP 109/43
[2022-10-25] MEDS: INSULIN REGULAR, HUMAN 100 UNIT/ML 3 ML VIAL SQ PRN ×2 (13:39→17:44)
[2022-10-25] MEDS ORDERED: SODIUM POLYSTYRENE SULF. PWD 15 GM UDC PO ONE (15:00)
[2022-10-25 15:17] LABS: IRON, SERUM 16 ug/dl (50-175); TOTAL IRON BINDING CAPACITY 157 ug/dl (250-450)
[2022-10-25 16:00] VITALS: BP 89/39
--- NOTE | 2022-10-25 19:18 | NUR ---
RN OPENING NOTES; RECEIVED PATIENT IN BED AAOX4 SLOVENIAN SPEAKING,DAUGHTER AT BEDSIDE.ON O2 VIA NC AT 4L SAT 97%, NO SOB/DISTRESS NOTED,NO COMPLAIN OF PAIN/DISCOMFORT AT THIS TIME,IV ACCESS ON LAC #20G, INTACT AND PATENT, S/L. SAFETY MEASURES IN PLACE: BED LOCKED AND IN LOWEST POSITION, SIDE RAILS UP X3, BED ALARM ON, CALL LIGHT WITHIN REACH ,WILL CONTINUE TO MONITOR.
--- NOTE | 2022-10-25 19:30 | NUR ---
RN CLOSING NOTES; RECEIVED PATIENT IN BED AAOX4 ALGERIAN SPEAKING,DAUGHTER AT BEDSIDE.ON O2 VIA NC AT 4L SAT 97%, NO SOB/DISTRESS NOTED,NO COMPLAIN OF PAIN/DISCOMFORT AT THIS TIME,IV ACCESS ON LAC #20G, INTACT AND PATENT, S/L. ALL DUE MEDS GIVEN ORDERED , STILL WITH ASCITES NOTED , PARACENTESIS NOT DONE PER MD NOT ENOUGH FLUID ITS MORE OF AIR , SAFETY MEASURES IN PLACE: BED LOCKED AND IN LOWEST POSITION, SIDE RAILS UP X3, BED ALARM ON, CALL LIGHT WITHIN REACH ,ENDORSED TO NEXT SHIFT .
[2022-10-25 20:00] VITALS: BP 75/40
--- NOTE | 2022-10-25 20:50 | NUR ---
RN NOTES; PT PB WAS 75/40.I TEXTED DOC.Mago KING WITH A NEW ORDER ALBUMIN 25GM 1V ONE.
[2022-10-25] MEDS: ONDANSETRON HCL/PF 4 MG/2 ML VIAL IVP PRN (20:55)
[2022-10-25] MEDS ORDERED: ALBUMIN 25% 12.5 GM/50 ML BOTTLE IV ONE (21:30)
[2022-10-25] MEDS ORDERED: ALBUMIN 25% 100 ML IV ONE (23:07)
[2022-10-25 23:14] LABS: FERRITIN 184 ng/mL (8-388)
[2022-10-26] VITALS (48 sets, daily range): BP systolic 66–133; BP diastolic 25–80
[2022-10-26] MEDS: ZOSYN IVPB 2.25 G in IV D5W 50ml IV SCH ×3 (05:04→20:03)
--- NOTE | 2022-10-26 06:20 | NUR ---
RN CLOSING NOTES; PATIENT IN BED AAOX3 BENINESE SPEAKING,DAUGHTER AT BEDSIDE.ON 4L O2 VIA NC AT 96%, NO SOB/DISTRESS NOTED,NO COMPLAIN OF PAIN/DISCOMFORT DURING SHIFT,IV ACCESS ON RAC #22G, INTACT AND PATENT SL,DUE MEDS GIVEN ORDER,ALL NEEDS ATTENDED. SAFETY MEASURES IN PLACE: BED LOCKED AND IN LOWEST POSITION, SIDE RAILS UP X3, BED ALARM ON, CALL LIGHT WITHIN REACH ,WILL CONTINUE TO MONITOR.
[2022-10-26 06:41] LABS: BASOPHILS % (AUTO) 0.1 % (0.0-2.0); EOSINOPHILS % (AUTO) 0.1 % (0.0-6.0); HEMATOCRIT 27 % (33-45); HEMOGLOBIN 8.5 g/dL (11.5-14.8); LYMPHOCYTES # (AUTO) 0.6 K/uL (0.8-4.8); LYMPHOCYTES % (AUTO) 3.1 % (20.0-44.0); MEAN CORPUSCULAR HGB CONC 31 g/dl (31.0-36.0); MEAN CORPUSCULAR VOLUME 95 fL (82-100); MONOCYTES # (AUTO) 0.9 K/uL (0.1-1.30); MONOCYTES % (AUTO) 4.9 % (2.0-12.0); NEUTROPHILS # (AUTO) 17.3 K/uL (1.8-8.9); NEUTROPHILS % (AUTO) 91.8 % (43.0-81.0); PLATELET COUNT (AUTO) 110 K/uL (150-450); RED BLOOD CELL COUNT(AUTO) 2.88 MIL/uL (4.0-5.2); WHITE BLOOD COUNT (AUTO) 18.8 K/uL (4.3-11.0)
[2022-10-26 06:50] LABS: CALCIUM, SERUM 7.6 mg/dL (8.5-10.1); CARBON DIOXIDE 18 mmol/L (21-32); CHLORIDE 102 mmol/L (98-107); CREATININE 4.1 mg/dL (0.6-1.3); GLUCOSE 113 mg/dL (74-106); POTASSIUM 5.6 mmol/L (3.5-5.1); SODIUM SERUM 137 mmol/L (136-145); UREA NITROGEN, BLOOD 69 mg/dL (7-18)
[2022-10-26 06:54] LABS: D-DIMER 8.12 mg/L(FEU (0.17-0.50)
--- NOTE | 2022-10-26 07:30 | NUR ---
LABORER TANBARK OPENING NOTES RECEIVED PATIENT IN BED, AWAKE, ALERT AND VERBALLY RESPONSIVE, FAMILY AT THE BEDSDIDE, AOX3 TAMAZIGHT SPEAKING, ON 4L O2 VIA NC TOLERATING WELL, NO SOB/DISTRESS NOTED,NO COMPLAIN OF PAIN/DISCOMFORT DURING SHIFT,IV ACCESS ON RAC #22G, INTACT AND PATENT SL. ON TELE MONITOR SR. SAFETY MEASURES IN PLACE: BED LOCKED AND IN LOWEST POSITION, SIDE RAILS UP X3, BED ALARM ON, CALL LIGHT WITHIN REACH. PLAN OF CARE CONTINUE.
[2022-10-26] MEDS: BLOOD SUGAR DIAGNOSTIC 1 EACH STRIP IN SCH ×2 (07:39→12:33)
[2022-10-26] MEDS ORDERED: DIATR MEGLU/DIATRIZOATE SODIUM 30 ML BOTTLE (GASTROGRAPHIN) ONE (08:30)
[2022-10-26] MEDS ORDERED: BISACODYL SUPP (10 MG) 10 MG/SUPP.RECT SUPP.RECT RC PRN (08:30)
--- NOTE | 2022-10-26 08:35 | NUR ---
DR. BROWN AT THE BEDSIDE, DULCE SAWYER FORECLOSURE HOME INSPECTOR, PATIENT C/O OF CONSTIPATION LAST BM WAS 10/24, WITH NEW ORDER STAT KUB AND BISACODYL SUPPOSITORY PRN GIVEN NOW, NOTED AND CARRIED OUT.
--- NOTE | 2022-10-26 08:36 | NUR ---
INFORMED DR. BROWN OF BP 85/48, PER MD GIVE ROUTINE MIDODRINE. NOTED AND CARRIED OUT.
[2022-10-26] MEDS: FUROSEMIDE 40 MG/4 ML VIAL IV SCH (09:00)
[2022-10-26] MEDS: SPIRONOLACTONE 25 MG TABLET PO SCH (09:00)
[2022-10-26] MEDS: MIDODRINE HCL (5MG) 5 MG TABLET PO SCH ×3 (09:24→17:00)
[2022-10-26] MEDS: RIFAXIMIN 200 MG TABLET PO SCH ×2 (09:24→17:00)
[2022-10-26] MEDS: PANTOPRAZOLE 40 MG TABLET.DR PO SCH (09:24)
[2022-10-26] MEDS: PROSOURCE / PROSTAT (PYXIS) 30 ML UDC GT SCH ×3 (09:25→17:00)
--- NOTE | 2022-10-26 09:26 | NUR ---
HOLD LASIX AND ALDACTONE DUE TO BP 85/48, DR. BROWN MADE AWAKE.
[2022-10-26] MEDS ORDERED: NA PHOS,M-B/NA PHOS,DI-BA 1 EA ENEMA RC PRN (10:00)
[2022-10-26] MEDS ORDERED: SODIUM POLYSTYRENE SULFONATE 15 G/60 ML BOTTLE PO ONE (10:00)
--- NOTE | 2022-10-26 10:30 | NUR ---
STAT KUB DONE.
[2022-10-26] MEDS ORDERED: IV NS 0.9% 500 ML IV ONE ×3 (12:06→13:30)
--- NOTE | 2022-10-26 12:06 | NUR ---
NOTED BP MANUALLY 68/34, PATIENT IS ALERT AND VERBALLY RESPONSIVE, FAMILY AT THE BEDSIDE, INFORMED DR. BROWN, RAPID RESPONSE INITIATED.
--- NOTE | 2022-10-26 12:07 | NUR ---
NEW ORDER FROM DR. BROWN NORMAL SALINE BOLUS 500ML X 1 NOW, NOTED AND CARRIED OUT.
--- NOTE | 2022-10-26 12:12 | NUR ---
RAPID RESPONSE TEAM ARRIVED, BP MANUALLY 65/43, HR 52, 02 SAT 91% @6LPM 02 VIA MI. ASKED MD IF OK TO TRANSFER PATIENT TO ICU, PER DR. BROWN GIVE ANOTHER NS 500ML BOLUS. NOTED AND CARRIED OUT.
--- NOTE | 2022-10-26 12:54 | NUR ---
BP STILL NOTED 69/30 MANUALLY, INFORMED DR. BROWN WITH ORDER GIVE NS 500ML BOLUS X1 NOW. NOTED AND CARRIED OUT.
--- NOTE | 2022-10-26 13:07 | NUR ---
BP 70/44 HR 60, PATIENT ALERT AND RESPONSIVE.
--- NOTE | 2022-10-26 13:13 | NUR ---
BP 74/32 HR 53, PATIENT ALERT AND VERBALLY RESPONSIVE, DAUGHTER AT THE BEDSIDE.
--- NOTE | 2022-10-26 13:17 | NUR ---
MAXI RESULTS RECEIVED, INFORMED DR. BROWN
--- NOTE | 2022-10-26 13:22 | NUR ---
NOTED PATIENT HAVING SHORTNESS OF BREATH ON 6LPM 02 VIA NC O2 SAT 89-90% BP STILL NOTED 77/28 MANUALLY TAKEN, 3RD BAG OF NORMAL SALINE BOLUS RUNNING, INFORMED DR. BROWN TO SEND PATIENT TO ICU. NOTED AND CARRIED OUT.
--- NOTE | 2022-10-26 13:30 | NUR ---
TRANSFERRED PATIENT VIA ACLS PROTOCOL TO ICU ROOM 259, ALL PERSONAL BELONGINGS AND MEDICATIONS SENT WITH THE PATIENT. GAVE BEDSIDE REPORT TO BRITANY JAIME. PATIENT.
--- NOTE | 2022-10-26 13:30 | NUR ---
TX to ICU. Pt hypotensive Cont IVF challenge as ordered by Dr Veras. Start Vasopressor for BP support if fluid challenge not effective. Family @bedside updated with plan of care. Pt Code status remains DNI, Dr Mock aware. Cont close monitoring of patient
[2022-10-26 14:19] LABS: ABG BASE EXCESS -13.9 mmol/L; ABG OXYGEN SATURATION 91.2 % (92.0-98.5); ABG PCO2 29.8 mmHg (35.0-45.0); ABG PH 7.234 (7.350-7.450); ABG PO2 71.6 mmHg (75.0-100.0); AaDO2 179.3 mmHg; COHb 0.4 % (0.5-1.5); MetHb 0.4 % (0.0-1.5); O2Hb 90.5 % (94.0-97.0); SITE, ABG Left Radial; VENT MODE, BG 5l nc
--- NOTE | 2022-10-26 14:40 | NUR ---
RT PER DR GALINDO PATIENT PLACED ON RESCUE BIPAP 20/5 R 20, 100%. PATIENT IS IN CRITICAL CONDITION. DNI. FAMILY AT BEDSIDE. Addendum: 10/26/22 at 1442 by MEET GUNDERSON RT Amended: Links added.
[2022-10-26] MEDS: NOREPINEPHRINE 8 MG in IV NS 0.9% 242 ML IV PRN ×2 (15:13→20:51)
[2022-10-26] MEDS: HYDROCORTISONE SOD SUCCINATE 100 MG/2 ML VIAL IV SCH ×2 (15:20→20:03)
[2022-10-26] MEDS ORDERED: PHYTONADIONE INJ 10 MG in IV D5W 50 ML SQ ONE (18:00)
[2022-10-26] MEDS ORDERED: PHYTONADIONE INJ 10 MG/1 ML AMPUL SQ ONE (20:00)
[2022-10-27] VITALS (95 sets, daily range): BP systolic 71–156; BP diastolic 22–98
[2022-10-27] MEDS ORDERED: BLOOD SUGAR DIAGNOSTIC 1 EACH STRIP IN SCH
[2022-10-27] MEDS: BLOOD SUGAR DIAGNOSTIC 1 EACH STRIP IN SCH ×5 (00:37→23:09)
[2022-10-27] MEDS: NOREPINEPHRINE 8 MG in IV NS 0.9% 242 ML IV PRN ×4 (02:15→17:00)
[2022-10-27 05:00] LABS: EOSINOPHILS % (AUTO) 0.5 % (0.0-6.0); HEMATOCRIT 29 % (33-45); HEMOGLOBIN 8.7 g/dL (11.5-14.8); LYMPHOCYTES # (AUTO) 0.3 K/uL (0.8-4.8); LYMPHOCYTES % (AUTO) 1.7 % (20.0-44.0); MEAN CORPUSCULAR HGB CONC 30 g/dl (31.0-36.0); MEAN CORPUSCULAR VOLUME 97 fL (82-100); MONOCYTES # (AUTO) 0.6 K/uL (0.1-1.30); NEUTROPHILS # (AUTO) 18.1 K/uL (1.8-8.9); NEUTROPHILS % (AUTO) 94.8 % (43.0-81.0); PLATELET COUNT (AUTO) 128 K/uL (150-450); RED BLOOD CELL COUNT(AUTO) 3.03 MIL/uL (4.0-5.2); WHITE BLOOD COUNT (AUTO) 19.1 K/uL (4.3-11.0)
[2022-10-27] MEDS: HYDROCORTISONE SOD SUCCINATE 100 MG/2 ML VIAL IV SCH ×3 (05:00→21:22)
[2022-10-27] MEDS: ZOSYN IVPB 2.25 G in IV D5W 50ml IV SCH (05:00)
[2022-10-27 05:03] LABS: CARBON DIOXIDE 16 mmol/L (21-32); CHLORIDE 102 mmol/L (98-107); GLUCOSE 125 mg/dL (74-106); POTASSIUM 6.1 mmol/L (3.5-5.1); SODIUM SERUM 136 mmol/L (136-145)
[2022-10-27 05:04] LABS: BILIRUBIN,DIRECT 6.8 mg/dL (0.0-0.2); BILIRUBIN,TOTAL 8.1 mg/dL (0.2-1.0); CALCIUM, SERUM 7.4 mg/dL (8.5-10.1); CREATININE 4.3 mg/dL (0.6-1.3); UREA NITROGEN, BLOOD 71 mg/dL (7-18)
[2022-10-27 05:12] LABS: D-DIMER 9.84 mg/L(FEU (0.17-0.50)
[2022-10-27] MEDS ORDERED: DOSE PER PHARMACY MICAFUNGIN 1 EA XX PRN (07:30)
[2022-10-27] MEDS ORDERED: SODIUM POLYSTYRENE SULFONATE 15 G/60 ML BOTTLE PO ONE (07:30)
--- NOTE | 2022-10-27 08:00 | NUR ---
pt awake alert x1,family on bedside ,on bipap with fio2 100% 20/5 rate 20 pt npo , dr broderick visited the patient ,try to give po meds ,pt desaturates ,also refused ,on levophed gtt 0.4mcg at this time
[2022-10-27] MEDS: PANTOPRAZOLE 40 MG TABLET.DR PO SCH (08:20)
[2022-10-27 08:37] LABS: ABG OXYGEN SATURATION 97.5 % (92.0-98.5); ABG PO2 105.4 mmHg (75.0-100.0); AaDO2 586.6 mmHg; COHb 0.1 % (0.5-1.5); MetHb 0.3 % (0.0-1.5); O2Hb 97.1 % (94.0-97.0); SITE, ABG Left Radial; VENT MODE, BG BIPAP 20/5
[2022-10-27] MEDS: PROSOURCE / PROSTAT (PYXIS) 30 ML UDC GT SCH ×3 (09:00→17:00)
[2022-10-27] MEDS: SPIRONOLACTONE 25 MG TABLET PO SCH (09:00)
[2022-10-27] MEDS ORDERED: MEROPENEM 500 MG in IV NS 0.9% 50 ML IV SCH (09:00)
[2022-10-27] MEDS: FERROUS SULFATE (325 MG) 325 MG/TAB TABLET PO SCH ×2 (09:00→17:00)
[2022-10-27] MEDS: RIFAXIMIN 200 MG TABLET PO SCH ×2 (09:00→17:00)
[2022-10-27] MEDS ORDERED: MICAFUNGIN SODIUM 100 MG in IV NS 0.9% 100 ML IV SCH (09:00)
[2022-10-27] MEDS: MIDODRINE HCL (5MG) 5 MG TABLET PO SCH ×3 (09:00→17:03)
[2022-10-27] MEDS ORDERED: INSULIN LISPRO/ASPART 100 UNIT/ML CARTRIDGE SQ ONE (10:00)
[2022-10-27] MEDS ORDERED: DEXTROSE 50%-WATER 50 ML DISP.SYRIN IVP ONE (10:00)
[2022-10-27] MEDS: DEXTROSE 50%-WATER 50 ML DISP.SYRIN IV PRN ×3 (10:11→11:39)
[2022-10-27] MEDS: IV D5/0.45 NACL 1,000 ML IV SCH ×2 (10:48→23:00)
[2022-10-27] MEDS: INSULIN REGULAR, HUMAN 100 UNIT/ML 3 ML VIAL SQ PRN ×2 (11:38→18:26)
[2022-10-27] MEDS: ONDANSETRON HCL/PF 4 MG/2 ML VIAL IVP PRN (13:29)
--- NOTE | 2022-10-27 19:20 | NUR ---
ICU/DIRECTOR PHYSICAL LEVO WAS CHANGED OVER TO 32MG FROM 8MG DUE TO THE FAVT PT IS GETTING LARGE AMOUNT OF FLUIDS AND NO URINE OUTPUT. THIS WAS PLACED AND CARRIED OUT SEE IV SPREAD SHEET FOR TITRATIONS. WILL CONTINUE TO MONITOR THIS PT AND HER BP.
--- NOTE | 2022-10-27 19:22 | NUR ---
PT AWAKE ON 100% NONREBREATHER MASK, O2 SAT 96%AT THIS TIME ,SR ONN MONITOR ,FAMILY ON BEDSIDE,ON LEVOPHED 0.3MCG AT THIS TIME HAS RT UPPER ARM MIDLINE IN PLACE INCONTINANT OF URINE ,DNI WITH CPR AND MEDICATION OK FAR CODE STATUS,REPORT TO VENEER JOINTER HELPER TARA RN PT ON NO RESP, DISTRESS AT THIS TIME
--- NOTE | 2022-10-27 19:50 | NUR ---
ICU/MODELING INSTRUCTOR FAMILY HAD TO STEP OUT DURING REPORT. PT REMAINED AGITATED, TRYING TO REMOVE OXYGEN. PT UNABLE TO UNDERSTAND TO KEEP OXYGEN ON. WILL CONTINUE TO MONITOR THIS PT AND HER SATURATION.
[2022-10-27] MEDS: NOREPINEPHRINE 32 MG in IV NS 0.9% 250 ML IV PRN ×2 (21:31→21:51)
[2022-10-28] VITALS (32 sets, daily range): BP systolic 51–128; BP diastolic 19–104
--- NOTE | 2022-10-28 04:00 | NUR ---
ICU/SENIOR PRINCIPAL LOOKS LIKE THE LEVO WILL BE MAXED OUT SOON, CALLED THE MD PROJECT ECONOMIST NISA FOR A SECOND PRESSOR. AWAIT FOR CALL BACK. CHARGE NURSE MADE AWARE.
--- NOTE | 2022-10-28 04:45 | NUR ---
ICU/CLIENT CARE CONSULTANT PT HAS 350ML IN URINE FROM BLADDER SCAN. HOWEVER PT'S COAGULATION IS HIGH ALONG WITH HER D-DIMER. MADE THE ORTHODONTIST VICE PRESIDENT AWARE OF THE URINE OUTPUT, AWAIT FOR ORDERS TO PLACE ELIZABETH.
[2022-10-28 05:02] LABS: BASOPHILS % (AUTO) 0.2 % (0.0-2.0); LYMPHOCYTES # (AUTO) 0.6 K/uL (0.8-4.8); LYMPHOCYTES % (AUTO) 2.6 % (20.0-44.0); MEAN CORPUSCULAR VOLUME 101 fL (82-100); PLATELET COUNT (AUTO) 97 K/uL (150-450)
[2022-10-28] MEDS: HYDROCORTISONE SOD SUCCINATE 100 MG/2 ML VIAL IV SCH (05:10)
[2022-10-28 05:29] LABS: BILIRUBIN,DIRECT 6.6 mg/dL (0.0-0.2); CALCIUM, SERUM 7.4 mg/dL (8.5-10.1); CARBON DIOXIDE 11 mmol/L (21-32); CHLORIDE 99 mmol/L (98-107); CREATININE 4.6 mg/dL (0.6-1.3); GLUCOSE 123 mg/dL (74-106); SODIUM SERUM 132 mmol/L (136-145); UREA NITROGEN, BLOOD 71 mg/dL (7-18)
[2022-10-28 05:34] LABS: EOSINOPHILS % (AUTO) 1.7 % (0.0-6.0); HEMATOCRIT 31 % (33-45); HEMOGLOBIN 8.8 g/dL (11.5-14.8); MEAN CORPUSCULAR HGB CONC 29 g/dl (31.0-36.0); MONOCYTES # (AUTO) 0.4 K/uL (0.1-1.30); MONOCYTES % (AUTO) 1.6 % (2.0-12.0); NEUTROPHILS # (AUTO) 22.4 K/uL (1.8-8.9); NEUTROPHILS % (AUTO) 93.9 % (43.0-81.0); RED BLOOD CELL COUNT(AUTO) 3.06 MIL/uL (4.0-5.2); WHITE BLOOD COUNT (AUTO) 23.8 K/uL (4.3-11.0)
--- NOTE | 2022-10-28 05:38 | NUR ---
ICU/EXECUTIVE ADMIN JOURNAL ENTRY AUDIT CLERK HASN'T CALLED BACK, ABOUT THE SECOND PRESSOR AND ELIZABETH.
[2022-10-28 05:39] LABS: D-DIMER 16.09 mg/L(FEU (0.17-0.50)
[2022-10-28 05:50] LABS: POTASSIUM 7.2 mmol/L (3.5-5.1)
[2022-10-28] MEDS: BLOOD SUGAR DIAGNOSTIC 1 EACH STRIP IN SCH (06:20)
--- NOTE | 2022-10-28 06:26 | NUR ---
ICU/TECHNICAL PUBLICATIONS MANAGER 0455-ABNORMAL LABS CALLED IN PTT-95.9 AND POTASSIUM 7.22, CALLED INSURANCE CODER FOR ORDERS. @0510-PT TAKEN A TURN, LOW BP AND LOW SATURATION, ASKED ABOUT GETTING ORDERS FOR DNR.DNI DUE TO PT'S CHANGE IN CONDITION. FAMILY AT BEDSIDE ASKED TO BRING OTHER FAMILY TO SAY GOOD BYE @0615-FAMILY AT BEDSIDE, HEART RATE IN THE 30'S TO 40'S WITH SATURATION IN THE 80'S. DAUGHTER PAN SAID SHE DOESN'T WANT PT TO SUFFER, PT MADE DNR/DNI GOT ORDER FROM NISA. CHARGE NURSE MADE AWARE. @0607-MORE FAMILY AT BEDSIDE. ALSO CALLED THE RIM FIRE CHARGER OPERATOR FOR LAST RITES.
[2022-10-28] MEDS ORDERED: PHENYLEPHRINE 50 MG in IV NS 0.9% 245 ML IV PRN (06:30)
[2022-10-28] MEDS ORDERED: SODIUM POLYSTYRENE SULFONATE 15 G/60 ML BOTTLE PO ONE ×2 (06:30→15:30)
[2022-10-28] MEDS ORDERED: INSULIN REGULAR, HUMAN 100 UNIT/ML 10 ML VIAL IV ONE (06:30)
[2022-10-28] MEDS ORDERED: DEXTROSE 50%-WATER 50 ML DISP.SYRIN IVP ONE (06:30)
--- NOTE | 2022-10-28 06:50 | NUR ---
ICU/TRAIN OPERATIONS MANAGER PT'S POTASSIUM IS 7.22, D50 WAS GIVEN ANGEL DOBBY LOOM WEAVER NURSE ALSONG WITH REGULAR INSULIN 10UNITS, UNABLE TO GIVE KAYEXALATE DUE TO PT IS DYING AND NO NGT WITH HIGH PTT AT 95.9
--- NOTE | 2022-10-28 07:25 | NUR ---
ICU/WIRE BORDER ASSEMBLER COMFORT MEASURES STARTED, DAY ADDISON CANALES IS AWARE AND ORDERS TO BE CARRIED OUT. STEPHANIE GAVE VERBAL ORDERS FOR MORPHINE 2MG IVP Q 2 HRS.
[2022-10-28] MEDS ORDERED: MORPHINE SULFATE INJ 2 MG/ML DISP.SYRIN IV PRN (07:30)
--- NOTE | 2022-10-28 07:30 | NUR ---
MUSIC EDUCATOR NOTE: RECEIVED PT ON COMFORT CARE WITH AGONAL BREATHING, NON RESPONSIVE. ON NON REBREATHER MASK. UNABLE TO REACH SATURATION. BP LOW. LEVOPHED DRIP OFF. ANURIC. GEN EDEMA PRESENT. DR LOUISE. SEEN PT. FAMILY AT BEDSIDE. IV MORPHINE ORDERED FOR COMFORT MEASURE.
--- NOTE | 2022-10-28 07:45 | NUR ---
SUPPLY CHAIN TECHNICIAN NOTE: MORPHINE 2MG IV PUSH GIVEN ORDERED. FAMILY AT BEDSIDE.
[2022-10-28 09:45] LABS: LYMPHOCYTES % (MANUAL) 4 % (16-48); MONOCYTES % (MANUAL) 2 % (0-11.0); NEUTROPHILS % (MANUAL) 94 (42-76)
--- NOTE | 2022-10-28 10:30 | NUR ---
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 ASYSTOLE ON MONITOR. NO RESPIRATIONS. NO PUPIL REACTION. NO CHEST MOVEMENTS. PRONOUNCE BY LALA JAIME. DR BROWN NOTIFIED. 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 [facility] CALLED SPOKE TO CHRISTOPHER CASE #[id number]. FAMILY AT BEDSIDE AT THIS TIME BODY WILL GO TO [facility]. MORTUARY JAMES CHO PHONE [phone]. WILL FINAL CIGAR AND BOX EXAMINER THE BODY FROM [facility].DAUGHTER PAN CONLEY PHONE [phone]
--- NOTE | 2022-10-28 12:49 | NUR ---
ICU/RN MORTUARY MANAGER STUDENT SERVICES TAKE THE BODY FROM ROOM.
== END 2022-10-28 16:10 | DRG 441 ==
LOC: ER 17:46 → TELE1 20:22 → ICU 10-26 13:28
PROVIDERS: ADMIT Nurse Practitioner Acute Care; ATTEND Internal Medicine
PROC: 5A09457 Assistance with Respiratory Ventilation, 24-96 Consecutive Hours, Continuous Positive Airway Pressure (ICD-10-PCS; principal; 2022-10-26)
PROC: 05HB33Z Insertion of Infusion Device into Right Basilic Vein, Percutaneous Approach (ICD-10-PCS; 2022-10-26)
DX: K76.7 Hepatorenal syndrome (principal); E43 Unspecified severe protein-calorie malnutrition; K65.2 Spontaneous bacterial peritonitis; N17.0 Acute kidney failure with tubular necrosis; R18.8 Other ascites; C22.0 Liver cell carcinoma; K76.6 Portal hypertension; I85.10 Secondary esophageal varices without bleeding; E87.20 Acidosis, unspecified; K80.10 Calculus of gallbladder with chronic cholecystitis without obstruction; J90 Pleural effusion, not elsewhere classified; K56.7 Ileus, unspecified; N39.0 Urinary tract infection, site not specified; E87.1 Hypo-osmolality and hyponatremia; R64 Cachexia; J98.11 Atelectasis; D68.9 Coagulation defect, unspecified; D62 Acute posthemorrhagic anemia; K74.60 Unspecified cirrhosis of liver; Z20.822 Contact with and (suspected) exposure to COVID-19; Z66 Do not resuscitate; Z51.5 Encounter for palliative care; E11.9 Type 2 diabetes mellitus without complications; Z79.84 Long term (current) use of oral hypoglycemic drugs; Z79.899 Other long term (current) drug therapy; E80.6 Other disorders of bilirubin metabolism; E83.41 Hypermagnesemia; Z98.890 Other specified postprocedural states; N28.89 Other specified disorders of kidney and ureter; B96.89 Other specified bacterial agents as the cause of diseases classified elsewhere; E87.5 Hyperkalemia; K21.9 Gastro-esophageal reflux disease without esophagitis; E88.09 Other disorders of plasma-protein metabolism, not elsewhere classified; Z87.19 Personal history of other diseases of the digestive system; T38.3X5A Adverse effect of insulin and oral hypoglycemic [antidiabetic] drugs, initial encounter; Y92.9 Unspecified place or not applicable; E83.39 Other disorders of phosphorus metabolism; E87.70 Fluid overload, unspecified; D72.829 Elevated white blood cell count, unspecified; D69.6 Thrombocytopenia, unspecified
CPT/HCPCS: 36410; 36415; 36600; 71045-TC; 74018; 74021; 76700-TC; 76705-TC; 80048-TC; 80076-TC; 81001; 82140-TC; 82247-TC; 82248-TC; 82533; 82728-TC; 82803-TC; 82962-TC; 83540-TC; 83605-TC; 83690-TC; 83735-TC; 84100-TC; 84300-TC; 84484-TC; 85025-TC; 85385-TC; 85396; 85730-TC; 86140-TC; 86704; 86706; 86803; 87040-TC; 87081-TC; 87086-TC; 87340; 87806; 93970-TC; 94799-TC; A4223; C9803; G0378; J0610; J1720; J1815; J1940; J2185; J2248; J2270; J2370; J2405; J2543; J3370; J3430; J3490; J7030; J7050; J7060; P9047; Q9963